=== PATIENT | female | born 1950 | race Caucasian/White ===

== ENCOUNTER 2021-07-28 00:22 | Inpatient (IN) | payer BC, MEDICARE ==
[~2021-07-28] VITALS: Ht 160 cm; Wt 135.5 kg
[2021-07-28 02:04] LABS: Basophils # (auto) 0.1 10 ^3/uL (0-0.2); Basophils % (auto) 1.1 % (0.0-2.0); Eosinophils # (auto) 0.2 10 ^3/uL (0-0.8); Eosinophils % (auto) 3.8 % (0.0-7.0); Hemoglobin 13.4 g/dL (12.2-16.2); Lymphocytes # (auto) 0.9 10 ^3/uL (0.4-5.4); Mean Corpuscular Hemoglobin 29.1 pg (28.0-32.0); Mean Corpuscular Hgb Conc. 32.6 g/dL (32.0-36.0); Mean Corpuscular Volume 89.2 fL (80.0-100.0); Monocytes # (auto) 0.4 10 ^3/uL (0-1.3); Monocytes % (auto) 6.7 % (0.0-12.0); Neutrophils % (auto) 72.4 % (37.0-80.0); Red Cell Distribution Width 15.5 % (11.8-14.3); White Blood Cell 5.6 10^3/uL (4.4-10.8)
[2021-07-28 02:20] LABS: Albumin 3.4 g/dL (3.4-5.0); BUN/Creatinine Ratio 13.8; Calcium 8.3 mg/dL (8.5-10.1); Potassium 4.8 mmol/L (3.5-5.1)
[2021-07-28 02:25] LABS: Bilirubin, Total 0.3 mg/dL (0.2-1.0); Total Protein 7.3 g/dL (6.4-8.2)
[2021-07-28] MEDS ORDERED: ALBUTEROL SULF 2.5 MG/0.5ML(0.5%) NEB SOLN NEB ONE ×2 (02:30→03:15)
[2021-07-28] MEDS ORDERED: DexAMETHasone SOD PHOS 10MG/1ML VIAL INJ IV ONE (02:45)
[2021-07-28] MEDS ORDERED: ALBUTEROL SULF 2.5 MG/0.5ML(0.5%) NEB SOLN ONE (03:32)
[2021-07-28] MEDS ORDERED: IPRATROPIUM BROM 0.5 MG/2.5ML INH SOL ONE (03:32)
[2021-07-28] MEDS ORDERED: IOHEXOL 350 MG/ML 100ML IJ ONE (04:33)
[2021-07-28] MEDS ORDERED: ACETAMINOPHEN 325 MG TAB PO ONE (06:00)
[2021-07-28] MEDS ORDERED: ONDANSETRON HCL 4 MG/2 ML VIAL IV PRN (07:15)
[2021-07-28 07:40] LABS: INR 0.99 (0.9-1.15); Partial Thromboplastin Time 30.1 sec (23.6-33.0)
[2021-07-28] MEDS ORDERED: methylPREDNISolone SOD SUCC 40 MG/ML VL IV SCH (10:00)
[2021-07-28] MEDS: dilTIAZem 120MG ER CAP PO SCH (10:45)
[2021-07-28] MEDS: PANTOPRAZOLE 40 MG TAB PO SCH (10:45)
[2021-07-28] MEDS: ENOXAPARIN SOD 40 MG/0.4 ML SYRINGE SC SCH (10:45)
[2021-07-28] MEDS ORDERED: AZITHROMYCIN 500MG/ 250ML 250 ML IV ONE (11:00)
[2021-07-28] MEDS ORDERED: INFLUENZA QUAD 2021-2022 0.5 ML SYRG IM ONE (11:00)
[2021-07-28] MEDS ORDERED: PNEUMOCOCCAL VACC POLYS 25 MCG/0.5 ML VIAL IM ONE (11:00)
[2021-07-28] MEDS: IPRATROPIUM BROM 0.5 MG/2.5ML INH SOL NEB SCH ×2 (12:54→18:45)
[2021-07-28] MEDS: ALBUTEROL SULF 2.5 MG/0.5ML(0.5%) NEB SOLN NEB SCH ×2 (12:54→18:45)
[2021-07-28 13:00] VITALS: BP 127/80
[2021-07-28 17:00] VITALS: BP 127/74
[2021-07-28] MEDS: ATORVASTATIN 20 MG TAB PO SCH (21:40)
[2021-07-28] MEDS: methylPREDNISolone SOD SUCC 40 MG/ML VL IV SCH (21:40)
[2021-07-28 22:00] VITALS: BP 137/69
[2021-07-29] MEDS: TEMAZEPAM 15 MG CAP PO PRN (00:44)
[2021-07-29] MEDS: ACETAMINOPHEN 325 MG TAB PO PRN (02:13)
[2021-07-29 05:00] VITALS: BP 149/74
[2021-07-29 05:18] LABS: Basophils # (auto) 0 10 ^3/uL (0-0.2); Basophils % (auto) 0.4 % (0.0-2.0); Eosinophils # (auto) 0 10 ^3/uL (0-0.8); Hematocrit 39.4 % (36.0-46.0); Hemoglobin 12.9 g/dL (12.2-16.2); Lymphocytes # (auto) 0.6 10 ^3/uL (0.4-5.4); Lymphocytes % (auto) 9.8 % (10.0-50.0); Mean Corpuscular Hemoglobin 29.2 pg (28.0-32.0); Mean Corpuscular Hgb Conc. 32.7 g/dL (32.0-36.0); Mean Corpuscular Volume 89.4 fL (80.0-100.0); Monocytes # (auto) 0.1 10 ^3/uL (0-1.3); Monocytes % (auto) 2.1 % (0.0-12.0); Neutrophils # (auto) 5.6 10 ^3/uL (1.6-8.6); Neutrophils % (auto) 87.7 % (37.0-80.0); Nucleated Red Blood Cells % 0.1 %; Red Blood Cells 4.41 10^6/uL (4.0-5.20); Red Cell Distribution Width 15.4 % (11.8-14.3); White Blood Cell 6.4 10^3/uL (4.4-10.8)
[2021-07-29 05:36] LABS: BUN/Creatinine Ratio 22.4; Calcium 8.3 mg/dL (8.5-10.1); Potassium 5.1 mmol/L (3.5-5.1)
[2021-07-29] MEDS: IPRATROPIUM BROM 0.5 MG/2.5ML INH SOL NEB SCH ×3 (06:10→19:41)
[2021-07-29] MEDS: ALBUTEROL SULF 2.5 MG/0.5ML(0.5%) NEB SOLN NEB SCH ×3 (06:10→19:41)
[2021-07-29 08:00] VITALS: BP 121/63
[2021-07-29 09:00] VITALS: BP 121/63
[2021-07-29] MEDS: methylPREDNISolone SOD SUCC 40 MG/ML VL IV SCH ×2 (09:57→22:02)
[2021-07-29] MEDS: dilTIAZem 120MG ER CAP PO SCH (09:58)
[2021-07-29] MEDS: AZITHROMYCIN 500MG/ 250ML 250 ML IV SCH (09:58)
[2021-07-29] MEDS: PANTOPRAZOLE 40 MG TAB PO SCH (09:59)
[2021-07-29] MEDS: ENOXAPARIN SOD 40 MG/0.4 ML SYRINGE SC SCH (09:59)
[2021-07-29] MEDS: SODIUM CHLORIDE 0.9% 1,000 ML IV SCH (12:26)
[2021-07-29 13:00] VITALS: BP 122/68
[2021-07-29 16:57] VITALS: BP 122/62
[2021-07-29 22:00] VITALS: BP 148/72
[2021-07-29] MEDS: ATORVASTATIN 20 MG TAB PO SCH ×2 (22:02→22:25)
[2021-07-29] MEDS: PROMETHAZINE W/CODEINE 5 ML ORAL SYRUP PO PRN (22:25)
[2021-07-30] MEDS: SODIUM CHLORIDE 0.9% 1,000 ML IV SCH ×2 (04:55→21:22)
[2021-07-30 05:00] VITALS: BP 139/61
[2021-07-30 06:26] LABS: BUN/Creatinine Ratio 29.8; Calcium 7.9 mg/dL (8.5-10.1); Potassium 4.9 mmol/L (3.5-5.1)
[2021-07-30] MEDS: IPRATROPIUM BROM 0.5 MG/2.5ML INH SOL NEB SCH ×3 (07:04→18:53)
[2021-07-30] MEDS: ALBUTEROL SULF 2.5 MG/0.5ML(0.5%) NEB SOLN NEB SCH ×3 (07:04→18:53)
[2021-07-30] MEDS: AZITHROMYCIN 500MG/ 250ML 250 ML IV SCH (08:34)
[2021-07-30] MEDS: methylPREDNISolone SOD SUCC 40 MG/ML VL IV SCH ×2 (08:34→21:22)
[2021-07-30] MEDS: ENOXAPARIN SOD 40 MG/0.4 ML SYRINGE SC SCH (08:36)
[2021-07-30] MEDS: dilTIAZem 120MG ER CAP PO SCH (08:36)
[2021-07-30] MEDS: PANTOPRAZOLE 40 MG TAB PO SCH (08:36)
[2021-07-30 08:38] VITALS: BP 136/86
[2021-07-30] MEDS: ACETAMINOPHEN 325 MG TAB PO PRN (12:20)
[2021-07-30 13:00] VITALS: BP 146/71
[2021-07-30] MEDS: PROMETHAZINE W/CODEINE 5 ML ORAL SYRUP PO PRN ×2 (16:41→22:32)
[2021-07-30 16:50] VITALS: BP 133/77
[2021-07-30] MEDS ORDERED: MORPHINE SULFATE INJECTION 2 MG/ML SYRG IV ONE (17:20)
[2021-07-30] MEDS: TEMAZEPAM 15 MG CAP PO PRN (21:23)
[2021-07-30 22:00] VITALS: BP 152/66
[2021-07-30] MEDS ORDERED: ATORVASTATIN 20 MG TAB PO ONE (22:00)
[2021-07-31 05:00] VITALS: BP 152/80
[2021-07-31 06:00] LABS: Calcium 8.3 mg/dL (8.5-10.1); Potassium 4.9 mmol/L (3.5-5.1)
[2021-07-31 06:02] LABS: BUN/Creatinine Ratio 29.6
[2021-07-31] MEDS: ALBUTEROL SULF 2.5 MG/0.5ML(0.5%) NEB SOLN NEB SCH ×4 (07:15→23:40)
[2021-07-31] MEDS: IPRATROPIUM BROM 0.5 MG/2.5ML INH SOL NEB SCH ×3 (07:15→23:40)
[2021-07-31 09:00] VITALS: BP 153/86
[2021-07-31] MEDS: dilTIAZem 120MG ER CAP PO SCH (09:17)
[2021-07-31] MEDS: AZITHROMYCIN 500MG/ 250ML 250 ML IV SCH (09:17)
[2021-07-31] MEDS: methylPREDNISolone SOD SUCC 40 MG/ML VL IV SCH ×2 (09:18→22:05)
[2021-07-31] MEDS: ENOXAPARIN SOD 40 MG/0.4 ML SYRINGE SC SCH (09:18)
[2021-07-31] MEDS ORDERED: TEMAZEPAM 15 MG CAP PO PRN (11:15)
[2021-07-31 13:08] VITALS: BP 149/89
[2021-07-31 17:00] VITALS: BP 135/71
[2021-07-31] MEDS: guaiFENesin-DM 100/10mg/5ml SYR PO PRN (18:54)
[2021-07-31] MEDS: ACETYLCYSTEINE 20%(200MG/ML) SOL 4ML NEB SCH (19:08)
[2021-07-31] MEDS: ACETAMINOPHEN 325 MG TAB PO PRN (20:00)
[2021-07-31 22:00] VITALS: BP 139/77
[2021-07-31] MEDS: ATORVASTATIN 20 MG TAB PO SCH (22:05)
[2021-08-01] MEDS: guaiFENesin-DM 100/10mg/5ml SYR PO PRN ×2 (01:31→09:07)
[2021-08-01 05:00] VITALS: BP 132/72
[2021-08-01] MEDS: IPRATROPIUM BROM 0.5 MG/2.5ML INH SOL NEB SCH ×3 (07:08→14:11)
[2021-08-01] MEDS: ALBUTEROL SULF 2.5 MG/0.5ML(0.5%) NEB SOLN NEB SCH ×3 (07:08→14:10)
[2021-08-01 08:00] VITALS: BP 124/54
[2021-08-01] MEDS: ENOXAPARIN SOD 40 MG/0.4 ML SYRINGE SC SCH (09:07)
[2021-08-01] MEDS: methylPREDNISolone SOD SUCC 40 MG/ML VL IV SCH (09:07)
[2021-08-01] MEDS: AZITHROMYCIN 500MG/ 250ML 250 ML IV SCH (09:07)
[2021-08-01] MEDS: dilTIAZem 120MG ER CAP PO SCH (09:18)
[2021-08-01] MEDS: ACETYLCYSTEINE 20%(200MG/ML) SOL 4ML NEB SCH (10:29)
[2021-08-01] MEDS ORDERED: AZIT250T8 PO (10:46)
[2021-08-01] MEDS ORDERED: METH4PAK PO (10:46)
[2021-08-01] MEDS ORDERED: DILT120C12 PO (10:46)
[2021-08-01] MEDS ORDERED: ATOR20TA50 PO (10:46)
[2021-08-01 11:59] VITALS: BP 118/60
[2021-08-01 16:00] VITALS: BP 136/73
== END 2021-08-01 18:00 | disposition home or self-care (01) | DRG 189 ==
LOC: ER 00:22 → TELE 07:11 → TELE-WESTW 09:09
PROVIDERS: ADMIT Nurse Practitioner; ATTEND Internal Medicine Geriatric Medicine
DX: J96.21 Acute and chronic respiratory failure with hypoxia (principal); J44.1 Chronic obstructive pulmonary disease with (acute) exacerbation; J45.901 Unspecified asthma with (acute) exacerbation; N17.9 Acute kidney failure, unspecified; Z68.43 Body mass index [BMI] 50.0-59.9, adult; J98.11 Atelectasis; E78.5 Hyperlipidemia, unspecified; I10 Essential (primary) hypertension; E66.01 Morbid (severe) obesity due to excess calories; Z20.822 Contact with and (suspected) exposure to COVID-19; F17.200 Nicotine dependence, unspecified, uncomplicated; Z82.49 Family history of ischemic heart disease and other diseases of the circulatory system; Z87.01 Personal history of pneumonia (recurrent)
CPT/HCPCS: 36415; 36600; 71045; 71275; 80048; 80053; 82805; 83880; 84484; 85025; 85379; 85610; 85730; 87426; 93005; 93306; 94640; 94644; 96374; G0378; J1100